=== PATIENT | male | born 1985 | race Caucasian/White ===

== ENCOUNTER 2017-05-23 20:45 | Inpatient (IN) | payer OTHER ==
[2017-05-23 22:43] VITALS: BP 123/84; PULSE 71; RESP 16; TEMP 98.1; O2SAT 99
[2017-05-24] MEDS ORDERED: diphenhydrAMINE HCL 50 MG/ML VIAL - HS PRN IM (01:00)
[2017-05-24] MEDS ORDERED: ALUMINUM/MAGNESIUM/SIMETH 30 ML CUP PO PRN (01:00)
[2017-05-24] MEDS ORDERED: ACETAMINOPHEN 325 MG TAB PO PRN (01:00)
[2017-05-24] MEDS ORDERED: MAGNESIUM HYDROXIDE SUSP 30 ML CUP PO PRN (01:00)
[2017-05-24] MEDS ORDERED: diphenhydrAMINE HCL 50 MG CAP - HS PRN PO (01:00)
[2017-05-24 05:39] VITALS: BP 137/65; PULSE 87; RESP 18; TEMP 97.1
[2017-05-24 09:05] LABS: ANION GAP 6 MEQ/L (5-15); BICARBONATE 29.5 MEQ/L (21.0-32.0); BLOOD UREA NITROGEN 12 MG/DL (7-18); CHLORIDE 106 MEQ/L (98-107); GLOMERULAR FILTRATION RATE 112 ML/MIN (>89); POTASSIUM 4.2 MEQ/L (3.5-5.1); SODIUM (NA) 141 MEQ/L (136-145)
[2017-05-24 09:08] LABS: HDL CHOLESTEROL 49.3 MG/DL (40.0-60.0); LDL CHOLESTEROL 86 MG/DL (0-99)
--- NOTE | 2017-05-24 16:50 | HHI.HP ---
Provisional Diagnosis Admission Date May 23, 2017 at 22:10 [place] I. Major depressive disorder, single episode, severe with psychotic features Certification of Person's Competence To Provide Express and Informed Consent I have personally examined Kenn Fairchild , a person being served at [facility] on, May 24, 2017 16:50. Express and informed consent means consent voluntarily given in writing, by a competent person, after sufficient explanation and disclosure of the subject matter involved to enable the person to make a knowing and willful decision without any element of force, fraud, deceit, duress, or other form of constraint or coercion. This person is 18 years of age or older, is not now known to be incompetent to consent to treatment with a guardian advocate, and does not have a health care surrogate or proxy currently making medical treatment decisions. I have found this person to be one of the following: [] Competent to provide express and informed consent, as defined above, for voluntary admission to this facility and is competent to provide express and informed consent for treatment. He/she has the consistent capacity to make well reasoned, willful, and knowing decisions concerning his or her medical or mental health treatment. The person fully and consistently understands the purpose of the admission for examination/placement and is fully capable of personally exercising all rights assured [place] [x] Incompetent to provide express and informed consent to voluntary admission, and this is incompetent to provide express and informed consent to treatment. The person must be transferred to involuntary status and a petition for a guardian advocate filed with the Circuit Court. [] Refusing to provide express and informed consent to voluntary admission but is competent to provide express and informed consent for treatment. The person must be discharged or transferred to involuntary status. Form shall be completed within 24 hours of a person's arrival at the receiving facility and filed in the clinical record of each person: 1. Admitted on a voluntary basis 2. Permitted to provide express and informed consent to his/her own treatment 3. Allowed to transfer from involuntary to voluntary status 4. Prior to permitting a person to consent to his or her own treatment after having been previously found incompetent to consent to treatment. History of Present Illness Capacity: Has Capacity Psych Chief Complaint: depression, suicidal ideation, and auditory hallucinations HPI Patient is a 31-year-old under man, , with 3 children (2 daily [place], 1 child here in [place] with him), unemployed, without past psychiatric history , no previous psychiatric consultations, previous suicide attempts or self- injurious behavior, was brought under Saleh act for auditory hallucinations, increased depression and suicidal ideations and as per family having command auditory hallucinations to jump off a bridge. Patient was transferred to the inpatient psychiatry unit for further evaluation and management. Patient states that he [place] the [place] about 1 [place] now, undocumented, states that recently he has been feeling "desperate and anxious" which he was brought here for the same reason. Patient states they have been feeling depressed and that he is a "gnosticist sister" brought into the hospital. Patient reports he was feeling depressed for over 1 year now feels has gotten worse due to his current worries which include his family back in [place], feeling bad that he is feeling this way, having difficulty maintaining employment. Patient states that he has been having decreased sleep, appetite, energy, concentration as well as feelings of guilt, feeling very depressed, along with feeling hopeless and helpless and suicidal ideations. Patient states that he can't recall when he started having suicidal ideations but feels at times there is "nowhere out". Patient also endorses auditory hallucination recently which are commanding him to "do bad things" is felt that he was given test from God which allowed the devil to touch him in that way. Currently patient reports feeling "better" , denies suicide ideations at this time, and also denies any perceptual disturbances. Past psychiatric history: Denies Family history: 2 brothers and sister with mental illness but was unable to specify. Denies any suicides in the family. Substance use history: Alcohol use, last use was 8 months ago, denies any use of any illegal drugs. Denies any previous detox or rehabilitation programs. Past medical history: Denies Allergies: NKDA Social history: , has 2 children, 2 of which live in [place] and 1 child living in the land his sisters currently looking after while he is here in the hospital. Patient is currently unemployed but previously who employed in [employer]. Patient denies any legal history or firearms. She denies any history of abuse. Review of Systems Except as stated in HPI: all other systems reviewed are Neg Past Psych History Psychological trauma history No history of abuse Violence risk - others (6 mos) low Violence risk - self (6 mos) Elevated: Due to recent depressive symptoms and suicidal ideations along with command auditory hallucinations to jump off a bridge Substance Abuse History Drugs/Alcohol past 12 months Alcohol use, last use was 8 months ago, denies any use of any other substance Past Family Social History Coded Allergies: No Known Allergies (Unverified , 05/23/17) Current Medications Medications (Trade) Dose Ordered Sig/Rafi Route Start Time Stop Time Status Last Admin (Benadryl) 50 mg HS PRN PO 05/24/17 01:00 (Benadryl Inj) 50 mg HS PRN IM 05/24/17 01:00 (Tylenol) 650 mg Q4H PRN PO 05/24/17 01:00 (Milk Of Magnesia Liq) 30 ml DAILY PRN PO 05/24/17 01:00 (Mag-Al Plus Susp Liq) 30 ml Q6H PRN PO 05/24/17 01:00 (SEROquel) 50 mg BID PO 05/24/17 21:00 Family Psych History 2 brothers and sister with mental illness, unspecified. Denies suicides in the family. Social History , has 2 children, 2 of which live in [place] and 1 child living in the land his sisters currently looking after while he is here in the hospital. Patient is currently unemployed but previously who employed in [employer]. Patient denies any legal history or firearms. She denies any history of abuse. Patient's Strengths (min. 2) verbal and communicative Physical Exam Patient not noted to be in acute distress, no gross motor abnormalities, no tremors or EPS, noted with psychomotor retardation. Vital Signs Vital Signs Date Time Temp Pulse Resp B/P (MAP) Pulse Ox O2 Delivery O2 Flow Rate FiO2 05/24/17 05:39 97.1 87 18 137/65 (89) 05/23/17 22:43 99 Lab Results Test 05/24/17 07:40 Blood Urea Nitrogen 12 MG/DL Creatinine 0.80 MG/DL Random Glucose 88 MG/DL Calcium Level 8.7 MG/DL Sodium Level 141 MEQ/L Potassium Level 4.2 MEQ/L Chloride Level 106 MEQ/L Carbon Dioxide Level 29.5 MEQ/L Anion Gap 6 MEQ/L Estimat Glomerular Filtration Rate 112 ML/MIN Triglycerides Level 83 MG/DL Cholesterol Level 152 MG/DL LDL Cholesterol 86 MG/DL HDL Cholesterol 49.3 MG/DL Cholesterol/HDL Ratio 3.08 RATIO Mental Status Examination Appearance: Appropriate, Disheveled (slightly) Consciousness: Alert Orientation: Person Motor Activity: Normal gait Speech: Slow Language: Adequate Fund of Knowledge: Inadequate Attention and Concentration: Inadequate Memory: Unremarkable Mood: Sad Affect: Blunt Thought Process & Associations: Intact Thought Content: Thought blocking Hallucination Type: Auditory Delusion Type: None Suicidal Ideation: Yes Suicidal Plan: No Suicidal Intention: No Homicidal Ideation: No Homicidal Plan: No Homicidal Intention: No Insight: Poor Judgment: Impulsive Assessment & Plan Problem List: (1) Major depressive disorder, single episode, severe w psychotic behavior ICD Codes: F32.3 - Major depressive disorder, single episode, severe with psychotic features Assessment & Plan Patient is a 31-year-old Hungarian man, undocumented, with no past psychiatric history, who was brought in on a Saleh act for increased depression, suicidal ideation and auditory hallucinations which she was transferred to the inpatient psychiatry for further evaluation and management. Patient at this time continues to endorse depressive symptoms along with suicide ideations and command auditory hallucinations are hurt himself. Patient at this time is unable to determine whether place and sitter and therefore will petition for involuntary hospitalization at this time. Second opinion requested. We'll start quetiapine 50 mg by mouth twice a day with upward titration for psychosis and depression. Collateral information pending. Discharge planning in progress Discharge Planning Patient to return back to his residence was psychiatrically stable. Ralph Dang MD May 24, 2017 16:50
[2017-05-24 16:56] LABS: HEMOGLOBIN A1a 1.1 %; HEMOGLOBIN A1b 0.7 %; HEMOGLOBIN Ao 86.5 %; HEMOGLOBIN F 0.9 %; HEMOGLOBIN LA1C 1.7 %; HEMOGLOBIN P3 3.3 %
[2017-05-24] MEDS ORDERED: LORazepam 2 MG/ML VIAL IM PRN ×2 (17:00)
[2017-05-24] MEDS ORDERED: LORazepam 0.5 MG TAB PO PRN (17:00)
[2017-05-24] MEDS ORDERED: LORazepam 1 MG TAB PO PRN (17:00)
[2017-05-24 17:45] VITALS: BP 127/76; PULSE 80; RESP 18; TEMP 97.9; O2SAT 97
[2017-05-24] MEDS: QUEtiapine FUMARATE 25 MG TAB PO SCH (20:38)
[2017-05-25 05:28] VITALS: BP 116/71; PULSE 77; RESP 18; TEMP 98.1; O2SAT 100
[2017-05-25] MEDS: QUEtiapine FUMARATE 25 MG TAB PO SCH (08:40)
--- NOTE | 2017-05-25 15:43 | HHI.PYPN ---
Subjective Chief Complaint: depression, suicidal ideation, and auditory hallucinations Remarks Patient seen follow, chart review. Patient slept found lying in hospital bed, calm and cooperative today. Patient states these feeling better, states that he is feeling "happy" but then later states that he still feeling depressed but better. Patient states that he continues to feel "strange a bit". Patient noted to be slightly more guarded today and states "okay" to be honest I still have the voices telling me do negative things". Patient continues to be noted to be depressed along with some psychomotor retardation was encouraged to maintain personal hygiene and shower which she agreed to. Patient denies any SI but unclear whether patient was being forthcoming. Review of Systems Except as stated in HPI: all other systems reviewed are Neg Mental Status Examination Appearance: Appropriate, Disheveled (slightly) Consciousness: Alert Orientation: Person Motor Activity: Normal gait Speech: Slow Language: Adequate Fund of Knowledge: Inadequate Attention and Concentration: Inadequate Memory: Unremarkable Mood: Sad Affect: Blunt Thought Process & Associations: Intact Thought Content: Thought blocking Hallucination Type: Auditory ("negative things") Delusion Type: None Suicidal Ideation: Yes Suicidal Plan: No Suicidal Intention: No Homicidal Ideation: No Homicidal Plan: No Homicidal Intention: No Insight: Poor Judgment: Impulsive Results Vitals/IOs Vital Signs Date Time Temp Pulse Resp B/P (MAP) Pulse Ox O2 Delivery O2 Flow Rate FiO2 05/25/17 05:28 98.1 77 18 116/71 (86) 100 Assessment & Plan Problem List: (1) Major depressive disorder, single episode, severe w psychotic behavior ICD Codes: F32.3 - Major depressive disorder, single episode, severe with psychotic features Assessment & Plan Patient this time continues to have depressive symptoms along with auditory hallucinations and unclear where the patient continues to have suicidal ideations as patient not forthcoming at this time. We'll continue to titrate quetiapine to 100 mg by mouth twice a day for psychosis and depression. Continue to encourage patient to maintain personal hygiene, and per dissipating groups and activities while on the unit. Discharge planning in progress Justification for Cont. Inpt. At risk for further decompensation if at lower level of care Discharge Planning Patient to return back to his residence once psychiatrically clear Ralph Dang MD May 25, 2017 15:43
--- NOTE | 2017-05-25 15:57 | PD.PSY.CON ---
Provisional Diagnosis Admission Date May 23, 2017 at 22:10 [place] I. Major depressive disorder, single episode, severe with psychotic features History of Present Illness Service Psychiatry Consult Requested By Dr. Dang Reason for Consult Commanding-type auditory hallucinations Primary Care Physician Unknown HPI Patient is a 31-year-old under man, , with 3 children (2 daily [place], 1 child here in [place] with him), unemployed, without past psychiatric history , no previous psychiatric consultations, previous suicide attempts or self- injurious behavior, was brought under Saleh act for auditory hallucinations, increased depression and suicidal ideations and as per family having command auditory hallucinations to jump off a bridge. Patient was transferred to the inpatient psychiatry unit for further evaluation and management. Patient states that [place] now, undocumented, states that recently he has been feeling "desperate and anxious" which he was brought here for the same reason. Patient states they have been feeling depressed and that he is a "mormon sister" brought into the hospital. Patient reports he was feeling depressed for over 1 year now feels has gotten worse due to his current worries which include his family back in [place], feeling bad that he is feeling this way, having difficulty maintaining employment. Patient states that he has been having decreased sleep, appetite, energy, concentration as well as feelings of guilt, feeling very depressed, along with feeling hopeless and helpless and suicidal ideations. Patient states that he can't recall when he started having suicidal ideations but feels at times there is "nowhere out". Patient also endorses auditory hallucination recently which are commanding him to "do bad things" is felt that he was given test from God which allowed the devil to touch him in that way. Currently patient reports feeling "better" , denies suicide ideations at this time, and also denies any perceptual disturbances. The patient is a 31-year-old Belgian man, domiciled his brother in [place], unemployed, , but his is in [place], without any previous psychiatric history, no previous suicidal attempts, no prior psychiatric hospitalizations, no significant medical history, who was brought to the hospital under the Saleh act reporting auditory hallucinations of voices telling him to kill himself. On psychiatric evaluation for second opinion today the patient was found sleeping, but easily arousable. Patient reports that today he feels better, however is still depressed, hearing voices episodically, usually derogatory and commanding type. Review of Systems Constitutional: DENIES: Diaphoretic episodes, Fatigue, Fever, Weight gain, Weight loss, Chills, Dizziness, Change in appetite, Night Sweats Endocrine: DENIES: Heat/cold intolerance, Polydipsia, Polyuria, Polyphagia Eyes: DENIES: Blurred vision, Diplopia, Eye inflammation, Eye pain, Vision loss , Photosensitivity, Double Vision Ears, nose, mouth, throat: DENIES: Tinnitus, Hearing loss, Vertigo, Nasal discharge, Oral lesions, Throat pain, Hoarseness, Ear Pain, Running Nose, Epistaxis, Sinus Pain, Toothache, Odynophagia Respiratory: DENIES: Apneas, Cough, Snoring, Wheezing, Hemoptysis, Sputum production, Shortness of breath Cardiovascular: DENIES: Chest pain, Palpitations, Syncope, Dyspnea on Exertion , PND, Lower Extremity Edema, Orthopnea, Claudication Gastrointestinal: DENIES: Abdominal pain, Black stools, Bloody stools, Constipation, Diarrhea, Nausea, Vomiting, Difficulty Swallowing, Anorexia Genitourinary: DENIES: Sexual dysfunction, Urinary frequency, Urinary incontinence, Urgency, Hematuria, Dysuria, Nocturia, Penile Discharge, Testicular Pain, Testicular Swelling Musculoskeletal: DENIES: Joint pain, Muscle aches, Stiffness, Joint Swelling, Back pain, Neck pain Integumentary: DENIES: Abnormal pigmentation, Nail changes, Pruritus, Rash Hematologic/lymphatic: DENIES: Bruising, Lymphadenopathy Immunologic/allergic: DENIES: Eczema, Urticaria Neurologic: DENIES: Abnormal gait, Headache, Localized weakness, Paresthesias, Seizures, Speech Problems, Tremor, Poor Balance Psychiatric: COMPLAINS OF: Depression, Hallucinations, Suicidal Ideation Past Family Social History Coded Allergies: No Known Allergies (Unverified , 05/23/17) Current Medications Medications (Trade) Dose Ordered Sig/Rafi Route Start Time Stop Time Status Last Admin (Benadryl) 50 mg HS PRN PO 05/24/17 01:00 (Benadryl Inj) 50 mg HS PRN IM 05/24/17 01:00 (Tylenol) 650 mg Q4H PRN PO 05/24/17 01:00 (Milk Of Magnesia Liq) 30 ml DAILY PRN PO 05/24/17 01:00 (Mag-Al Plus Susp Liq) 30 ml Q6H PRN PO 05/24/17 01:00 (Ativan) 1 mg Q6H PRN PO 05/24/17 17:00 (Ativan Inj) 1 mg Q6H PRN IM 05/24/17 17:00 (SEROquel) 100 mg BID PO 05/25/17 21:00 Family Psych History Patient denies Social History Patient was born and raised in [place], he lives in [place] his brother, unemployed, , his is illiterate Patient's Strengths (min. 2) verbal and communicative Physical Exam Vital Signs Vital Signs Date Time Temp Pulse Resp B/P (MAP) Pulse Ox O2 Delivery O2 Flow Rate FiO2 05/25/17 05:28 98.1 77 18 116/71 (86) 100 Mental Status Examination Appearance: Appropriate, Disheveled (slightly) Consciousness: Alert Orientation: Person Motor Activity: Normal gait Speech: Slow Language: Adequate Fund of Knowledge: Inadequate Attention and Concentration: Inadequate Memory: Unremarkable Mood: Sad Affect: Blunt Thought Process & Associations: Intact Thought Content: Thought blocking Hallucination Type: Auditory ("negative things") Delusion Type: None Suicidal Ideation: Yes Suicidal Plan: No Suicidal Intention: No Homicidal Ideation: No Homicidal Plan: No Homicidal Intention: No Insight: Poor Judgment: Impulsive Assessment & Plan Problem List: (1) Major depressive disorder, single episode, severe w psychotic behavior ICD Codes: F32.3 - Major depressive disorder, single episode, severe with psychotic features Assessment & Plan: I have seen and examined this patient, reviewed the documentation, discussed the case with Dr. Dang, and I agree and concur with his assessment and plan. Consul appreciated. Assessment & Plan Estimated LOS: Christopher Mojica MD May 25, 2017 15:57
[2017-05-25 18:12] VITALS: BP 126/72; PULSE 82; RESP 18; O2SAT 98
[2017-05-25] MEDS: QUEtiapine FUMARATE 100 MG TAB PO SCH (20:21)
[2017-05-26 05:36] VITALS: BP 129/74; PULSE 95; RESP 18; TEMP 97.9; O2SAT 99
[2017-05-26] MEDS: QUEtiapine FUMARATE 100 MG TAB PO SCH ×2 (09:25→21:44)
--- NOTE | 2017-05-26 15:18 | HHI.PYPN ---
Subjective Chief Complaint: depression, suicidal ideation, and auditory hallucinations Remarks Patient seen for follow-up, chart reviewed. Patient found sitting in day room, calm and cooperative with interview. Patient states that he was visited by his sister, daughter and pentecostalism friend. He reports improved sleep, eating and drinking well, mood has been better and feels less depressed. He denies any AH, last time being on day of admission. Reports tolerating medication well; denies any side effects from medication. Review of Systems Except as stated in HPI: all other systems reviewed are Neg Mental Status Examination Appearance: Appropriate Consciousness: Alert Orientation: Person Motor Activity: Normal gait Speech: Slow Language: Adequate Fund of Knowledge: Inadequate Attention and Concentration: Inadequate Memory: Unremarkable Mood: Sad (less so today) Affect: Blunt (slightly more reactive at times) Thought Process & Associations: Intact Thought Content: Thought blocking (less so today) Hallucination Type: Auditory (denies today) Delusion Type: None Suicidal Ideation: Yes (denies today) Suicidal Plan: No Suicidal Intention: No Homicidal Ideation: No Homicidal Plan: No Homicidal Intention: No Insight: Poor Judgment: Impulsive Results Vitals/IOs Vital Signs Date Time Temp Pulse Resp B/P (MAP) Pulse Ox O2 Delivery O2 Flow Rate FiO2 05/26/17 05:36 97.9 95 18 129/74 (92) 99 Assessment & Plan Problem List: (1) Major depressive disorder, single episode, severe w psychotic behavior ICD Codes: F32.3 - Major depressive disorder, single episode, severe with psychotic features Assessment & Plan Patient noted to be more reactive during interview, endorsing decreased depressive mood and denies SI. Increase seroquel to 100mg AM/ 200mg HS. Continue to encourage maintenence of personal hygiene and participation in groups and activities. Discharge planning in progress. Justification for Cont. Inpt. At risk for further decompensation if at lower level of care. Discharge Planning Patient to return back to his residence once psychiatrically stable. Ralph Dang MD May 26, 2017 15:18
[2017-05-26 18:16] VITALS: BP 134/84; PULSE 84; RESP 16; TEMP 97.9; O2SAT 98
[2017-05-27 06:26] VITALS: BP 132/85; PULSE 107; RESP 16; TEMP 98; O2SAT 98
[2017-05-27] MEDS: QUEtiapine FUMARATE 100 MG TAB PO SCH ×2 (07:55→21:10)
--- NOTE | 2017-05-27 10:57 | HHI.PYPN ---
Subjective Chief Complaint: depression, suicidal ideation, and auditory hallucinations Remarks Patient was seen and case discussed with nursing. Interview conducted in Vietnamese. Patient appears internally preoccupied and is quite flat. Feeling today "a little better." Describes his mood today is "sad at times." Denies auditory hallucinations today but admits to them a couple days ago. Makes a statement that he feels paranoid with another member here but then takes it back. Says he sleeping well. Compliant with medications Mental Status Examination Appearance: Appropriate Consciousness: Alert Orientation: Person Motor Activity: Normal gait Speech: Slow Language: Adequate Fund of Knowledge: Inadequate Attention and Concentration: Inadequate Memory: Unremarkable Mood: Sad (less so today) Affect: Blunt (slightly more reactive at times) Thought Process & Associations: Intact Thought Content: Thought blocking (less so today), Depersonalization Hallucination Type: Auditory (denies today) Delusion Type: None Suicidal Ideation: Yes (denies today) Suicidal Plan: No Suicidal Intention: No Homicidal Ideation: No Homicidal Plan: No Homicidal Intention: No Insight: Poor Judgment: Impulsive Results Vitals/IOs Vital Signs Date Time Temp Pulse Resp B/P (MAP) Pulse Ox O2 Delivery O2 Flow Rate FiO2 05/27/17 06:26 98.0 107 16 132/85 (101) 98 Assessment & Plan Problem List: (1) Major depressive disorder, single episode, severe w psychotic behavior ICD Codes: F32.3 - Major depressive disorder, single episode, severe with psychotic features Assessment & Plan Continue current treatment plan Justification for Cont. Inpt. Patient will decompensate in a less restrictive setting Jean Carlos Gleason DO May 27, 2017 10:57
[2017-05-27 18:25] VITALS: BP 131/78; PULSE 85; RESP 18; TEMP 99; O2SAT 97
[2017-05-28 05:28] VITALS: BP 157/65; PULSE 97; RESP 18; TEMP 97.8
[2017-05-28] MEDS: QUEtiapine FUMARATE 100 MG TAB PO SCH ×2 (09:23→21:35)
--- NOTE | 2017-05-28 11:49 | HHI.PYPN ---
Subjective Chief Complaint: depression, suicidal ideation, and auditory hallucinations Remarks Patient was seen and case discussed with nursing. Patient remains shy, flat, hypoverbal. He says that his mood is good but the affect is not congruent. Denies psychosis. Could be responding to internal stimuli. Says he sleeping well. Does not describe any stressors. Tolerating medications well Mental Status Examination Appearance: Appropriate Consciousness: Alert Orientation: Person Motor Activity: Normal gait Speech: Slow Language: Adequate Fund of Knowledge: Inadequate Attention and Concentration: Inadequate Memory: Unremarkable Mood: Appropriate Affect: Flat Thought Process & Associations: Intact Thought Content: Thought blocking (less so today), Depersonalization Hallucination Type: Auditory (denies today) Delusion Type: None Suicidal Ideation: Yes (denies today) Suicidal Plan: No Suicidal Intention: No Homicidal Ideation: No Homicidal Plan: No Homicidal Intention: No Insight: Poor Judgment: Impulsive Results Vitals/IOs Vital Signs Date Time Temp Pulse Resp B/P (MAP) Pulse Ox O2 Delivery O2 Flow Rate FiO2 05/28/17 05:28 97.8 97 18 157/65 (95) 05/27/17 18:25 97 Assessment & Plan Problem List: (1) Major depressive disorder, single episode, severe w psychotic behavior ICD Codes: F32.3 - Major depressive disorder, single episode, severe with psychotic features Assessment & Plan Continue current treatment plan Justification for Cont. Inpt. Patient will decompensate in a less restrictive setting Jean Carlos Gleason DO May 28, 2017 11:49
[2017-05-28 22:00] VITALS: BP 119/79; PULSE 80; RESP 18; TEMP 97.4
[2017-05-29 06:11] VITALS: BP 127/73; PULSE 80; RESP 16; TEMP 98.7; O2SAT 97
[2017-05-29] MEDS: QUEtiapine FUMARATE 100 MG TAB PO SCH (09:05)
--- NOTE | 2017-05-29 11:38 | PD.TTN ---
Patient Problems 1. Discharge planning 2. Medication compliance 3. Knowledge deficit 4. Lack of coping skills Progress Toward Goals Provider Present: Dr. Rocky Dang Provider Input: Dr. Dang's treatment team met to discuss patient's treatment plan, discharge, and medication. Patient is being discharged today. Patient is doing better. Nurse(s) Input: Patient's nurse Gabo reports cooperative, compliant with medication. Psychiatric Counselors Present: MARTHA Mac Psych Therapist Input: Patient presents pleasant, cooperative, affect appropriate. Patient denies suicidal and homicidal ideation. Patient will follow up with [facility] located in [place]. Patient does not present internally stimulated or with any delusional content. Patient's friend will provide transportation. Group Spec/RT/OT/MARTÍNEZ Present: Lennox Moore OT Group Spec/RT/OT/MARTÍNEZ Input: Patient participates in 50 percent of groups. Jen Duncan May 29, 2017 11:38
[2017-05-29] MEDS ORDERED: QUET1TAB8 PO (13:15)
[2017-05-29] MEDS ORDERED: QUET1TAB9 PO (13:15)
--- NOTE | 2017-05-29 19:17 | HHI.DS ---
Psychiatry Discharge Summary Inpatient Psychiatric care?: Yes Advance Directive: No Reason Not Provided: doesnt have Mental Health AdvanceDirective: No Health Care Proxy: No Admission Admission Date May 23, 2017 at 22:10 Admission Diagnosis: (1) Major depressive disorder, single episode, severe w psychotic behavior ICD Code: F32.3 - Major depressive disorder, single episode, severe with psychotic features Brief History Patient is a 31-year-old under man, , with 3 children (2 daily [place], 1 child here in [place] with him), unemployed, without past psychiatric history , no previous psychiatric consultations, previous suicide attempts or self- injurious behavior, was brought under [place]h act for auditory hallucinations, increased depression and suicidal ideations and as per family having command auditory hallucinations to jump off a bridge. Patient was transferred to the inpatient psychiatry unit for further evaluation and management. Patient states that he has been in the [place] for about 1 year now, undocumented, states that recently he has been feeling "desperate and anxious" which he was brought here for the same reason. Patient states they have been feeling depressed and that he is a "baptism sister" brought into the hospital. Patient reports he was feeling depressed for over 1 year now feels has gotten worse due to his current worries which include his family back in [place], feeling bad that he is feeling this way, having difficulty maintaining employment. Patient states that he has been having decreased sleep, appetite, energy, concentration as well as feelings of guilt, feeling very depressed, along with feeling hopeless and helpless and suicidal ideations. Patient states that he can't recall when he started having suicidal ideations but feels at times there is "nowhere out". Patient also endorses auditory hallucination recently which are commanding him to "do bad things" is felt that he was given test from God which allowed the devil to touch him in that way. Currently patient reports feeling "better" , denies suicide ideations at this time, and also denies any perceptual disturbances. The patient is a 31-year-old [place] man, domiciled his brother in [place], unemployed, , but his is in [place], without any previous psychiatric history, no previous suicidal attempts, no prior psychiatric hospitalizations, no significant medical history, who was brought to the hospital under the Saleh act reporting auditory hallucinations of voices telling him to kill himself. On psychiatric evaluation for second opinion today the patient was found sleeping, but easily arousable. Patient reports that today he feels better, however is still depressed, hearing voices episodically, usually derogatory and commanding type. Tobacco Use In Past 30 Days: No Tobacco Past 30 Days Alcohol Use: Never Hospital Course Patient is a 31-year-old under man, , with 3 children (2 daily [place], 1 child here in [place] with him), unemployed, without past psychiatric history , no previous psychiatric consultations, previous suicide attempts or self- injurious behavior, was brought under [place] act for auditory hallucinations, increased depression and suicidal ideations and as per family having command auditory hallucinations to jump off a bridge. Patient was transferred to the inpatient psychiatry unit for further evaluation and management. Patient was started on quetiapine 50mg PO BID and titrated up to 100mg daily/ 200mg PO HS which he tolerated well. Patient was noted with improvement with mood, denied any depressive symptoms or suicidal ideations, and cooperative with staff. He reported cessation of auditory hallucinations, motivated to return back to work, and return back to his sisters home and continue to provide for his family. Upon discharge, patient stated feeling good denied any SI, HI, AVH or delusions. He agrees to continue treatment and outpatient follow up for continuity of care. Patient was counseled on importance of continued treatment. Supportive psychotherapy provided. Patient advised to call 911 or go nearest ED in case of emergency. Patient agrees with plan. Results Blood Pressure 127 / 73 Vital Signs Date Time Temp Pulse Resp B/P (MAP) Pulse Ox O2 Delivery O2 Flow Rate FiO2 05/29/17 06:11 98.7 80 16 127/73 (91) 97 Laboratory Results Test 05/24/17 07:40 Cholesterol Level 152 MG/DL (120-200) HDL Cholesterol 49.3 MG/DL (40.0-60.0) Hemoglobin A1c 5.4 % (4.3-6.0) LDL Cholesterol 86 MG/DL (0-99) Triglycerides Level 83 MG/DL (42-150) Summary of Procedures None Pending results at discharge: No Medications # of Antipsychotic meds at D/C: 1 Approp Antipsych med options 1 - Minimum of three failed multiple trials of monotherapy. 2 - Documented plan to taper to monotherapy due to previous use of multiple meds OR cross-taper in progress at D/C. 3 - Documentation of augmentation of Clozapine. 4 - Justification other than those listed in allowable values 1-3, document here : Discharge Discharge Date: May 29, 2017 Discharge Diagnosis: (1) Major depressive disorder, single episode, severe w psychotic behavior ICD Code: F32.3 - Major depressive disorder, single episode, severe with psychotic features Pt Condition on Discharge: Stable Discharge Disposition: Discharge Home Discharge Instructions Diet Instructions: As Tolerated, No Restrictions Activities you can perform: Regular-No Restrictions Scheduled Appointment: Theodore Jay Appointment Date: May 30, 2017 Appointment Time: 7:30am Discharge Time > 30 minutes Mental Status Examination Appearance: Appropriate Consciousness: Alert Orientation: Person Motor Activity: Normal gait Speech: Unremarkable Language: Adequate Fund of Knowledge: Inadequate Attention and Concentration: Adequate Memory: Unremarkable Mood: Appropriate Affect: Appropriate Thought Process & Associations: Intact, Goal directed, Linear Thought Content: Appropriate Hallucination Type: None Delusion Type: None Suicidal Ideation: No Suicidal Plan: No Suicidal Intention: No Homicidal Ideation: No Homicidal Plan: No Homicidal Intention: No Insight: Fair Judgment: Impulsive Discharge/Advance Care Plan Health Problems: (1) Major depressive disorder, single episode, severe w psychotic behavior Goals to promote your health * To prevent worsening of your condition and complications * To maintain your health at the optimal level Directions to meet your goals Take your medications as prescribed Follow your dietary instruction Follow activity as directed Keep your appointments as scheduled Take your immunizations and boosters as scheduled If your symptoms worsen call your PCP, if no PCP go to Urgent Care Center or Emergency Room For 06/02 questions related to your inpatient stay or results of tests pending at discharge, please contact Dr. Ralph Dang at Smoking is Dangerous to Your Health. Avoid second hand smoking Ralph Dang MD May 29, 2017 19:17
== END 2017-05-29 17:20 | disposition home or self-care (01) | DRG 885 ==
LOC: H270 22:10 → H260 05-26 12:45
PROVIDERS: ADMIT Student in an Organized Health Care Education/Training Program; ATTEND Student in an Organized Health Care Education/Training Program
DX: F32.3 Major depressive disorder, single episode, severe with psychotic features (principal); R45.851 Suicidal ideations
CPT/HCPCS: 80048; 80061; 83036; 84443; Q0163